=== PATIENT | female | born 1965 | race African-American/Black ===

== ENCOUNTER → 2020-12-15 | Day surgery (SDC) | payer BC ==
[~2020-12-15] MED LIST: BUPIVICAINE 0.25%/MORPH PF/KETOROLAC - 51ML DISP.SYRINGE IA ONE; CEFAZOLIN 2 GM in DEXTROSE 5%-WATER - 50 ML IVPB ONE; CELECOXIB 200 MG CAPSULE ONE; CELECOXIB 200 MG CAPSULE PO ONE; MIDAZOLAM HCL 2 MG/2 ML SINGLE DOSE VIAL ONE; PROPOFOL 20 ML ONE; THROMBIN (RECOMBINANT) 5,000 UNIT VIAL TP ONE; TRANEXAMIC ACID 1000 MG/10 ML VIAL IVPUSH ONE; ceFAZolin SODIUM 1 GM VIAL ONE
[2020-12-15 06:43] VITALS: BP 130/82; PULSE 58; TEMP 98.2; BMI 32.1
== END | disposition home or self-care (01) ==
LOC: FASU 05:53
PROVIDERS: ATTEND Orthopaedic Surgery
DX: Z53.8 Procedure and treatment not carried out for other reasons (principal)
CPT/HCPCS: 93005

== ENCOUNTER 2020-12-16 12:56 | Observation (INO) | payer BC ==
[2020-12-16 15:03] LABS: BASO % 0.8 % (0-2.0); EOS % 2.8 % (0-4.5); HEMATOCRIT 39.3 % (32.4-45.2); HEMOGLOBIN 13.1 GM/dL (10.7-15.3); LYMPH % 46.7 % (8-40); MCH 27.1 pg (25.7-33.7); MCHC 33.3 g/dl (32.0-36.0); MEAN CELL VOLUME 81.6 fl (80-96); MONO % 6.6 % (3.8-10.2); NEUT % 43.1 % (42.8-82.8); RBC 4.81 M/mm3 (3.60-5.2); RDW 14.8 % (11.6-15.6); WHITE BLOOD COUNT 4.9 K/mm3 (4.0-10.0)
[2020-12-16 15:18] LABS: CHLORIDE 107 mmol/L (98-107); SODIUM 140 mmol/L (136-145)
[2020-12-16 15:21] LABS: ANION GAP 2 MMOL/L (8-16); BLOOD UREA NITROGEN 10.4 mg/dL (7-18); CALCIUM 8.8 mg/dL (8.5-10.1); CO2 32 mmol/L (21-32); GLUCOSE,RANDOM 91 mg/dL (74-106); MAGNESIUM 2.3 mg/dL (1.8-2.4)
[2020-12-16 15:25] LABS: CREATININE 0.7 mg/dL (0.55-1.3)
[2020-12-16 15:28] LABS: MEAN PLT VOLUME 11.7 fl (7.5-11.1); PLATELET COUNT 179 K/MM3 (134-434)
[2020-12-16 21:49] VITALS: BMI 31.7
[2020-12-16] MEDS ORDERED: PATIENT'S OWN MEDICATION (NON-FORMULARY) (Telmisartan/Hydrochlorothiazid [Telmisartan-Hctz PO SCH (22:00)
[2020-12-16] MEDS ORDERED: LOSARTAN 50MG/HCTZ 12.5MG 1 TAB PO ONE (22:17)
[2020-12-17 07:15] LABS: BASO % 0.4 % (0-2.0); EOS % 3.8 % (0-4.5); HEMATOCRIT 38.5 % (32.4-45.2); HEMOGLOBIN 12.7 GM/dL (10.7-15.3); LYMPH % 47.6 % (8-40); MEAN CELL VOLUME 81.6 fl (80-96); MEAN PLT VOLUME 10.7 fl (7.5-11.1); MONO % 7.9 % (3.8-10.2); NEUT % 40.3 % (42.8-82.8); PLATELET COUNT 159 K/MM3 (134-434); RBC 4.71 M/mm3 (3.60-5.2); RDW 14.7 % (11.6-15.6); WHITE BLOOD COUNT 3.7 K/mm3 (4.0-10.0)
[2020-12-17 07:43] LABS: ALBUMIN 3.6 g/dl (3.4-5.0); BLOOD UREA NITROGEN 11.6 mg/dL (7-18); CALCIUM 8.5 mg/dL (8.5-10.1); MAGNESIUM 2.2 mg/dL (1.8-2.4)
[2020-12-17 07:46] LABS: CREATININE 0.6 mg/dL (0.55-1.3)
[2020-12-17 07:47] LABS: PHOSPHOROUS 4.2 mg/dL (2.5-4.9)
[2020-12-17 07:48] LABS: BILIRUBIN,TOTAL 0.7 mg/dL (0.2-1)
[2020-12-17] MEDS ORDERED: CHOLECALCIFEROL (VIT D3) 1,000 UNIT (25 MCG) TABLET PO SCH (10:00)
[2020-12-17] MEDS ORDERED: ENOXAPARIN NA (PORCINE) 40 MG/0.4 ML DISP.SYRIN SQ SCH (10:00)
[2020-12-17] MEDS ORDERED: LOSARTAN POTASSIUM 50 MG TABLET PO SCH ×2 (10:00→22:00)
[2020-12-17] MEDS ORDERED: HYDROCHLOROTHIAZIDE 12.5 MG CAPSULE (FP) PO SCH ×2 (10:00→22:00)
[2020-12-17] MEDS ORDERED: metoPROLOL SUCCINATE 25 MG TAB.SR.24H (FP) PO SCH (11:00)
[2020-12-17 18:28] VITALS: BP 125/84; PULSE 69; TEMP 97.8
== END 2020-12-17 18:42 | disposition home or self-care (01) ==
LOC: JER 12:56 → UNDOADMOB 16:41 → JERBED 16:41 → INTOOBSV 16:41 → J4S 21:39 → JERBED 21:39 → J4S 12-17 11:39 → JERBED 12-17 11:39
PROVIDERS: ADMIT Internal Medicine; ATTEND Internal Medicine
PROC: 3E023GC Introduction of Other Therapeutic Substance into Muscle, Percutaneous Approach (ICD-10-PCS; principal; 2020-12-17)
DX: I49.1 Atrial premature depolarization (principal); I49.3 Ventricular premature depolarization; I10 Essential (primary) hypertension; M17.12 Unilateral primary osteoarthritis, left knee; Z29.9 Encounter for prophylactic measures, unspecified; I45.9 Conduction disorder, unspecified; E66.8 Other obesity; Z68.37 Body mass index [BMI] 37.0-37.9, adult; R94.31 Abnormal electrocardiogram [ECG] [EKG]
CPT/HCPCS: 36415; 71046-TC-FY; 80048; 80053; 82550; 82553; 83036; 83735; 84100; 84443; 84484; 85025; 93005; 93010; 93306-TC; 99285-25; C9803; G0378; U0003; U0005